=== PATIENT | female | born 1945 | race Caucasian/White ===

== ENCOUNTER 2016-10-08 06:06 | Day surgery (SDC) | payer MEDICARE ==
[2016-10-08] MEDS ORDERED: PHENYLEPHRINE 2.5% OPHTH 2 ML DROPS ONE (06:24)
[2016-10-08] MEDS ORDERED: LACTATED RINGERS 500 ML IV ONE (06:27)
[2016-10-08] MEDS ORDERED: PROPARACAINE 0.5% OPHTH DROPS 15 ML OPTH ONE ×2 (06:45→07:34)
[2016-10-08] MEDS ORDERED: PHENYLEPHRINE 2.5% OPHTH 2 ML DROPS OPTH ONE (06:45)
[2016-10-08] MEDS ORDERED: CYCLOPENTOLATE 1% OPHTH DROPS 2 ML OPTH ONE (06:45)
[2016-10-08] MEDS ORDERED: KETOROLAC 0.45% OPHTH DROPS OPTH ONE (06:45)
[2016-10-08] MEDS ORDERED: EPINEPHrine 1 MG/ML AMP IVP ONE (07:33)
[2016-10-08] MEDS ORDERED: BRIMONIDINE 0.2% OPHTH DROPS 5 ML OPTH ONE (07:33)
[2016-10-08] MEDS ORDERED: TIMOLOL 0.5% OPHTH DROPS OPTH ONE (07:34)
[2016-10-08] MEDS ORDERED: BSS/LIDOCAINE/EPINEPHRINE 1 ML SYRINGE IO ONE ×2 (07:34)
[2016-10-08] MEDS ORDERED: CHONDR SULF/HYALURONATE SYRINGE IO ONE (07:34)
[2016-10-08] MEDS ORDERED: MIDAZOLAM 2 MG/2 ML VIAL IVP ONE (07:35)
[2016-10-08] MEDS ORDERED: LIDOCAINE-MPF 2% 5 ML VIAL IM ONE (07:35)
[2016-10-08] MEDS ORDERED: TRIAMCIN/MOXIFLOX/VANCO 1 ML VIAL IO ONE ×2 (07:35)
[2016-10-08] MEDS ORDERED: PROPOFOL 200 MG/20 ML VIAL IVP ONE (07:35)
== END 2016-10-08 06:07 | disposition home or self-care (01) ==
PROC: 08RK3JZ Replacement of Left Lens with Synthetic Substitute, Percutaneous Approach (ICD-10-PCS; principal; 2016-10-08 07:30)
DX: E11.36 Type 2 diabetes mellitus with diabetic cataract (principal); H25.12 Age-related nuclear cataract, left eye; I10 Essential (primary) hypertension; E78.00 Pure hypercholesterolemia, unspecified; E03.9 Hypothyroidism, unspecified; Z90.710 Acquired absence of both cervix and uterus; Z79.82 Long term (current) use of aspirin; Z79.84 Long term (current) use of oral hypoglycemic drugs
CPT/HCPCS: 66982; A9270; V2632

== ENCOUNTER 2021-07-13 17:15 | Outpatient (CLI) | payer MEDICARE | END 2021-07-13 17:16 | disposition short-term general hospital (02) | LOC: EMS 17:15 | DX: R53.1 Weakness (principal) | CPT/HCPCS: A0425; A0429 ==

== ENCOUNTER 2023-05-29 05:19 | Outpatient (CLI) | payer MEDICARE | END 2023-05-29 05:20 | disposition EMS.NT | LOC: EMS 05:19 | DX: Z03.89 Encounter for observation for other suspected diseases and conditions ruled out (principal) ==

== ENCOUNTER 2023-05-30 08:44 | Outpatient (CLI) | payer MEDICARE | END 2023-05-30 08:45 | disposition EMS.NT | LOC: EMS 08:44 | DX: Z03.89 Encounter for observation for other suspected diseases and conditions ruled out (principal) ==

== ENCOUNTER 2023-06-01 09:48 | Outpatient (CLI) | payer MEDICARE | END 2023-06-01 09:49 | disposition EMS.NT | LOC: EMS 09:48 | DX: Z03.89 Encounter for observation for other suspected diseases and conditions ruled out (principal) ==

== ENCOUNTER 2024-01-23 09:48 | Outpatient (CLI) | payer MEDICARE | END 2024-01-23 23:59 | disposition EMS.NT | LOC: EMS 09:48 | DX: Z03.89 Encounter for observation for other suspected diseases and conditions ruled out (principal) ==